=== PATIENT | female | born 2005 | race Caucasian/White ===

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

== ENCOUNTER 2025-07-07 14:47 | Outpatient (CLI) | payer OTHER, SELFPAY ==
--- NOTE | 2025-07-07 15:00 | CRLHL7_ITS ---
For Patients: As a result of the Century Cures Act, medical imaging exams and procedure reports are released immediately into your electronic medical record. You may view this report before your referring provider. If you have questions, please contact your health care provider. INDICATION: Dysmenorrhea, unspecified. TECHNIQUE: Ultrasound pelvis transabdominal and transvaginal. Real-time sonographic images with spectral and color Doppler imaging of the ovaries were obtained. COMPARISON: None available. FINDINGS: Uterus: 6.4 x 3.1 x 3.6 cm. Retroverted. Endometrium: Within normal limits. The endometrial thickness measures 0.5 cm. Mass: No distinct uterine fibroid identified. The endometrial-myometrial junction is somewhat ill-defined, with focal thickening of the posterior myometrium. Free fluid: Trace pelvic free fluid, likely physiologic. Right ovary: 3.2 x 1.7 x 1.4 cm. No ovarian or adnexal masses. Normal arterial and venous blood flow. Left ovary: 4.6 x 3.4 x 4.4 cm. Simple appearing left ovarian cyst/dominant follicle measuring 4.2 x 2.9 x 4.2 cm. Normal arterial and venous blood flow. IMPRESSION: 1. Focal thickening of the posterior myometrium, with somewhat ill-defined endometrial-myometrial junction. No distinct uterine fibroid measured. Findings are suspicious for uterine adenomyosis, this can be confirmed with MRI. 2. Simple appearing dominant follicle/left ovarian cyst measuring up to 4.2 cm. Dictated by Yoav Romeo MD @ 07/08/2025 2:59:31 PM (Electronically Signed)
== END 2025-07-07 14:48 | disposition home or self-care (01) ==
LOC: US 14:47
PROVIDERS: PCP Family Medicine; Visit Provider Physician Assistant
DX: N94.6 Dysmenorrhea, unspecified (principal); N83.292 Other ovarian cyst, left side
CPT/HCPCS: 76830; 76856; 93976